=== PATIENT | female | born 1960 | race Hispanic/Latino ===

== ENCOUNTER 2023-03-02 14:35 | Outpatient (RCR) | payer OTHER ==
[~2023-03-02 14:35] MED LIST: LIDOCAINE VISC 2% SOLN 15 ML UDC ONE
== END 2023-03-29 ==
LOC: WCC 14:35
PROVIDERS: ATTEND Internal Medicine Infectious Disease
DX: L89.312 Pressure ulcer of right buttock, stage 2 (principal); L89.322 Pressure ulcer of left buttock, stage 2; L89.892 Pressure ulcer of other site, stage 2; L97.812 Non-pressure chronic ulcer of other part of right lower leg with fat layer exposed; L97.512 Non-pressure chronic ulcer of other part of right foot with fat layer exposed; I87.311 Chronic venous hypertension (idiopathic) with ulcer of right lower extremity; I70.235 Atherosclerosis of native arteries of right leg with ulceration of other part of foot; I70.245 Atherosclerosis of native arteries of left leg with ulceration of other part of foot; R60.0 Localized edema